=== PATIENT | male | born 1980 | race Caucasian/White ===

== ENCOUNTER 2024-04-11 06:47 | Emergency (ER) | payer SELFPAY ==
[2024-04-11 06:55] VITALS: BP 182/120; PULSE 93; RESP 18; TEMP 36.6; O2SAT 97
--- NOTE | 2024-04-11 07:02 | W.ED.EXTPRO ---
HPI - Extremity Problem General: Chief complaint: Extremity Problem,Nontraumatic Stated complaint: pain in rt foot & leg Time Seen by Provider: 04/11/24 06:50 Source: patient Mode of arrival: ambulatory Limitations: no limitations History of Present Illness: 43-year-old male states he has history of surgery on his right foot he has chronic right foot pain. He states he is driving back to [place] and has ran out of his oxycodone. He states he is having pain he is unable to control he denies any fever or redness or new drainage or injury. Associated symptoms: Deny chest pain, fever(s) or rash Related Data Home Medications ?Medication ?Instructions ?Recorded ?Confirmed No Known Home Medications 04/11/24 04/11/24 Allergies Allergy/AdvReac Type Severity Reaction Status Date / Time NSAIDS (Non-Steroidal Allergy Unknown Verified 04/11/24 07:01 Anti-Inflamma Review of Systems Const: Denies: fever(s), chills, body aches or change in appetite ENMT: Denies: throat pain or dental pain Card: Denies: chest pain Resp: Denies: dyspnea GI: Denies: abdominal pain, nausea, vomiting or diarrhea Musc: Reports: extremity pain; Denies: neck pain or back pain Skin/Breast: Denies: rash Neuro: Denies: headache(s) Physical Exam Const: COMMON NORMALS: no acute distress, patient oriented x3 and healthy appearing HENMT: COMMON NORMALS: normocephalic and atraumatic HEAD & SCALP: normocephalic and atraumatic Eye: COMMON NORMALS: conjunctivae normal CONJUNCTIVA: Yes conjunctivae normal Neck/C-Spine: COMMON NORMALS: full ROM and supple Chest: COMMONS NORMALS: normal inspection of the chest Resp: COMMON NORMALS: normal respiratory effort Cardio: COMMON NORMALS: regular rate, regular rhythm and No murmurs present (Cardio) RATE: regular rate RHYTHM: regular rhythm Extremity: NARRATIVE EXTREMITY EXAM: Chronic wound to right foot distal pulses intact no redness no signs of infection Neuro: COMMON NORMALS: patient oriented x3, moves all extremities and no focal motor deficits Psych: COMMON NORMALS: mental status grossly normal, Normal thought process present and cooperative THOUGHT PROCESS: Normal thought process present Skin: COMMON NORMALS: no rashes or lesions noted and no wounds GENERAL SKIN EXAM: no rashes or lesions noted Course Vital Signs: Vital signs: Vital Signs Temperature 97.8 F 04/11/24 06:55 Pulse Rate 93 04/11/24 06:55 Respiratory Rate 18 04/11/24 06:55 Blood Pressure 182/120 04/11/24 06:55 Pulse Oximetry 97 04/11/24 06:55 Oxygen Delivery Me thod Room Air 04/11/24 06:55 MDM - Extremity (Nontraumatic) Medical Decision Making Patient presents here with foot pains chronic in nature he has no signs of acute infection or osteomyelitis he is stable for discharge follow-up with PCP return if worsening. Medical Records I reviewed the patient's medical records. No radiology studies performed this visit Discharge Plan Discharge Patient Disposition: Home Clinical Impression: Foot pain, right Condition: Stable Discharge Orders: Discharge ED (Routine); Ordered 04/11/24 Ordered By: Isreal Everett Discharge Diet: Advance as tolerated Discharge Activity: Resume usual activity Patient Instructions: Arthralgia (ED) Print Language: Uzbek Coding Level of Care Code ED Elevator Supervisor for Aries Juarez
[2024-04-11 07:03] VITALS: BP 182/120; PULSE 93; RESP 18; TEMP 36.6; O2SAT 97
[2024-04-11 07:25] VITALS: RESP 18; O2SAT 98
[2024-04-11] MEDS: oxyCODONE IR 30 mg Tablet PO (07:25)
[2024-04-11 07:30] VITALS: BP 149/110; PULSE 92; O2SAT 98
== END 2024-04-11 07:30 | disposition home or self-care (01) ==
PROVIDERS: Emergency Provider Emergency Medicine
DX: M79.671 Pain in right foot (principal); Z98.890 Other specified postprocedural states
CPT/HCPCS: 99283